=== PATIENT | male | born 1940 | race Caucasian/White ===

== ENCOUNTER 2018-03-24 14:00 | Emergency (ER) | payer MEDICARE, OTHER ==
--- NOTE | 2018-03-24 14:38 | EDM.PDOC ---
ED HPI GENERAL MEDICAL PROBLEM - General Chief Complaint: Lower Extremity Injury/Pain Stated Complaint: FELL AND INJURED LEFT HIP Time Seen by Provider: 03/24/18 14:20 Source of Information: Reports: Patient, EMS History Limitations: Reports: No Limitations - History of Present Illness INITIAL COMMENTS - FREE TEXT/NARRATIVE: 78-year-old male brought in with left hip pain after a fall. He has MS, has some type of nerve stimulator that helps him function on the left side of his body, while [place] was on the boat he fell onto his left side. He has significant pain in the left lateral hip, unable to bear weight. No significant deformity. Onset: Sudden Duration: Hour(s): (Within the last 2 hours) Location: Reports: Lower Extremity, Left Quality: Reports: Sharp, Stabbing Severity: Moderate Worsens with: Reports: Movement Associated Symptoms: Reports: No Other Symptoms Left Hip Pain Score (Numeric/FACES): 7 - Related Data Allergies Allergy/AdvReac Type Severity Reaction Status Date / Time No Known Allergies Allergy Verified 03/24/18 14:58 Home Meds: Home Meds Coxopine 40 mg IM ASDIRECTED 03/24/18 [History] Dalfampridine [Ampyra] 10 mg PO Q12HR 03/24/18 [History] Naproxen 250 mg PO BID 03/24/18 [History] Tamsulosin [Tamsulosin 24 Hr] 0.4 mg PO BID 03/24/18 [History] Past Medical History HEENT History: Reports: Cataract Genitourinary History: Reports: BPH Musculoskeletal History: Reports: Fracture Neurological History: Reports: MS - Infectious Disease History Infectious Disease History: Reports: Hepatitis A - Past Surgical History HEENT Surgical History: Reports: Cataract Surgery, Tonsillectomy Neurological Surgical History: Reports: Lumbar Spine Musculoskeletal Surgical History: Reports: Knee Replacement Review of Systems - Review of Systems Review Of Systems: See Below Respiratory: Denies: Shortness of Breath Cardiovascular: Denies: Chest Pain GI/Abdominal: Denies: Abdominal Pain Skin: Reports: Other (Also has an abrasion on his right lower leg and left elbow ) Neurological: Reports: Other (Chronic multiple sclerosis symptoms) Psychiatric: Reports: No Symptoms ED EXAM, GENERAL - Physical Exam Exam: See Below Exam Limited By: No Limitations General Appearance: Alert, Mild Distress (Very uncomfortable with any movement of the left hip or pelvis area) Head: Atraumatic Respiratory/Chest: No Respiratory Distress, Lungs Clear Cardiovascular: Regular Rate, Rhythm GI/Abdominal: Non-Tender Extremities: Other (Exquisite tenderness with palpation of the proximal left femur, also increased pain with any passive range of motion of the left leg. No significant groin tenderness) Neurological: Alert, Oriented Skin Exam: Warm, Dry, Other (Superficial abrasion is present on the lower aspect of the anterior right leg, and on the left elbow) Course - Vital Signs Last Recorded V/S: Last Vital Signs Temp 97.3 F 03/24/18 14:15 Pulse 71 03/24/18 14:15 Resp 16 03/24/18 14:15 BP 159/95 H 03/24/18 14:15 Pulse Ox 100 03/24/18 14:15 - Orders/Labs/Meds Orders: Active Orders 24 hr Category Date Time Status Hip wo Cont Lt [CT] Stat Exams 03/24/18 14:51 Taken - Re-Assessments/Exams Free Text/Narrative Re-Assessment/Exam: 03/24/18 14:38 X-ray of the pelvis and left hip were obtained. 03/24/18 15:26 X-ray looked normal. Patient was reexamined and still had persistent exquisite pain so a CT scan of the pelvis was obtained. By the time the CT results returned he was starting to have more range of motion passively and actively and less pain. 03/24/18 15:44 CT confirmed as no fracture. He continued to feel better. He has taken tramadol safely in the past so was discharged with 15 tramadol to take along with Aleve for extra pain control. He can increase activity as tolerated until he can resume his normal activity. Departure - Departure Time of Disposition: 16:40 Disposition: Home, Self-Care 01 Condition: Good Clinical Impression: Contusion of hip, left Qualifiers: Encounter type: initial encounter Qualified Code(s): S70.02XA - Contusion of left hip, initial encounter - Discharge Information Instructions: Contusion, [id number] Referrals: PCP,None [Primary Care Provider] - Forms: ED Department Discharge Care Plan Goals: Continue your regular medications, use Aleve for pain control and add tramadol as needed. Consider rechecking in 1-2 weeks if not improving satisfactorily, or return sooner if you develop increased pain or concerns. - My Orders Last 24 Hours: My Active Orders 03/24/18 14:51 Hip wo Cont Lt [CT] Stat - Assessment/Plan Last 24 Hours: My Active Orders 03/24/18 14:51 Hip wo Cont Lt [CT] Stat
--- NOTE | 2018-03-25 09:45 | CR ---
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 No acute fracture.
== END 2018-03-24 16:41 | disposition home or self-care (01) ==
LOC: JP.ED 14:00
DX: S70.02XA Contusion of left hip, initial encounter (principal); W19.XXXA Unspecified fall, initial encounter
CPT/HCPCS: 73502-26-LT; 73502-LT; 73700-LT; 99284-25